=== PATIENT | female | born 1970 | race Caucasian/White ===

== ENCOUNTER 2023-09-12 23:03 | Emergency (ER) | payer OTHER ==
[2023-09-12 23:13] VITALS: BP 136/84; PULSE 74; RESP 18; TEMP 98.4; BMI 32.5
[2023-09-12] MEDS ORDERED: ASPIRIN 81 MG CHEWABLE TABLETS ONE (23:55)
[2023-09-13] MEDS: ASPIRIN 81 MG CHEWABLE TABLETS PO ONE (00:09)
[2023-09-13 00:21] LABS: BASO % 0.6 % (0-2.0); HEMATOCRIT 40.1 % (32.4-45.2); HEMOGLOBIN 13.2 GM/dL (10.7-15.3); LYMPH % 44.2 % (8-40); MCH 26.6 pg (25.7-33.7); MCHC 32.8 g/dl (32.0-36.0); MEAN CELL VOLUME 81.1 fl (80-96); MEAN PLT VOLUME 8.3 fl (7.5-11.1); MONO % 11.2 % (3.8-10.2); PLATELET COUNT 264 10^3/uL (134-434); RBC 4.95 M/mm3 (3.60-5.2); RDW 15.1 % (11.6-15.6); WHITE BLOOD COUNT 3.9 K/mm3 (4.0-10.0)
[2023-09-13 00:39] LABS: POTASSIUM 3.7 mmol/L (3.5-5.1)
[2023-09-13 00:41] LABS: ALBUMIN 3.6 g/dl (3.4-5.0); BLOOD UREA NITROGEN 13.1 mg/dL (7-18); CALCIUM 9.3 mg/dL (8.5-10.1)
[2023-09-13 00:42] LABS: MAGNESIUM 2.1 mg/dL (1.8-2.4)
[2023-09-13 00:44] LABS: CREATININE 0.8 mg/dL (0.55-1.3)
[2023-09-13 00:46] LABS: BILIRUBIN,TOTAL 0.2 mg/dL (0.2-1); TOT PROT 7.1 g/dl (6.4-8.2)
[2023-09-13 02:24] LABS: INR 0.97 (0.83-1.09)
[2023-09-13 02:26] LABS: ACTIVATED PTT 29.8 SECONDS (25.2-36.5)
== END 2023-09-13 01:58 | disposition home or self-care (01) ==
LOC: JER 23:03
DX: R07.89 Other chest pain (principal); R42 Dizziness and giddiness; R06.02 Shortness of breath; R09.81 Nasal congestion; Z20.822 Contact with and (suspected) exposure to COVID-19
CPT/HCPCS: 0241U-QW; 36415; 71046-TC-FY; 80053; 83735; 84484; 84703; 85025; 85610; 85730; 93005; 93010; 99285-25